=== PATIENT | female | born 1950 | race Caucasian/White ===

== ENCOUNTER 2019-04-23 11:56 | Observation (INO) | payer MEDICARE ==
[~2019-04-23] VITALS: Ht 167.6 cm; Wt 81.6 kg
--- NOTE | 2019-04-23 12:18 | NUR ---
DR. DONALDSON AND JUANJO AT BEDSIDE FOR PT EVAL AT THIS TIME.
[2019-04-23] MEDS ORDERED: SODIUM CHLORIDE 0.9% 1000ML 1,000 ML IV STA (12:26)
[2019-04-23 12:49] LABS: BASOPHILS % 0.6 % (0.0-1.0); EOSINOPHILS # (AUTO) 0.1 (0.0-0.4); EOSINOPHILS % 1.3 % (0.0-6.0); HEMATOCRIT 44.7 % (34.2-44.1); LYMPHOCYTES # (AUTO) 1.1 (1.0-3.2); LYMPHOCYTES % 17.4 % (18.0-39.1); MEAN CORPUSCULAR HEMOGLOBIN 33.3 pg (28-32); MEAN CORPUSCULAR HGB CONC 35.8 g/dL (31-35); MEAN CORPUSCULAR VOLUME 92.9 fL (81-99); MONOCYTES # (AUTO) 0.5 (0.2-0.8); MONOCYTES % 7.6 % (4.4-11.3); NEUTROPHILS # (AUTO) 4.5 (2.1-6.9); NEUTROPHILS % 72.8 % (38.7-80.0); PLATELET COUNT 157 x10e3/uL (140-360); RED BLOOD COUNT 4.81 x10e6/uL (3.6-5.1); RED CELL DISTRIBUTION WIDTH 11.8 % (11.7-14.4)
[2019-04-23 12:55] LABS: INR 0.94; PROTHROMBIN TIME 13.1 seconds (11.9-14.5)
[2019-04-23 12:56] LABS: PARTIAL THROMBOPLASTIN TIME 32.5 seconds (23.8-35.5)
--- NOTE | 2019-04-23 12:59 | Diagnostic Imaging Report ---
CT BRAIN WO HISTORY: Dizziness COMPARISON: None. TECHNIQUE: Noncontrast axial scans were obtained from skull base to the vertex. Coronal and sagittal reconstructions obtained from the axial data. One or more of the following dose reduction techniques were used: Automated exposure control, adjustment of the mA and/or kV according to patient size, and/or utilization of iterative reconstruction technique. DISCUSSION: Scalp/Skull: Unremarkable. Brain sulci: Appropriate for patient's age. Ventricles: Normal in size and configuration. No hydrocephalus. Extra-axial spaces: No masses or fluid collections. Carotid siphon and vertebral artery calcifications are present. Parenchyma: Mild periventricular white matter hypodensities are likely chronic microvascular ischemic changes. Otherwise, no mass, hemorrhage, or large vascular territory acute infarct. Dural sinuses: No abnormal densities. Sellar/Suprasellar region: Intact. Skull base: Intact. Incidental findings: None. IMPRESSION: 1. No acute intracranial abnormalities. 2. Mild supratentorial chronic microvascular ischemic change. Signed by: Dr. Yonatan Sandoval M.D. on 04/23/2019 12:55 PM
[2019-04-23] MEDS ORDERED: ONDANSETRON HCL INJ 2MG/ML 2ML 2 MG/ML VIAL IV ONE (13:00)
[2019-04-23 13:07] LABS: ALBUMIN 3.9 g/dL (3.5-5.0); ALBUMIN/GLOBULIN RATIO 1.1 (0.8-2.0); ANION GAP 14.3 mmol/L (8-16); CALCIUM 10.1 mg/dL (8.4-10.2); CREATININE, SERUM 1.04 mg/dL (0.57-1.11); POTASSIUM 4.3 mmol/L (3.5-5.1)
[2019-04-23 13:13] LABS: CREATINE KINASE MB 1.8 ng/mL (0-5.0)
--- NOTE | 2019-04-23 13:20 | Diagnostic Imaging Report ---
EXAMINATION: CHEST 2 VIEWS INDICATION: Dizziness COMPARISON: None FINDINGS: LINES/TUBES:EKG leads overlie the chest. LUNGS:Lungs are moderately inflated. No focal consolidation. There is perihilar fullness and indistinctness of the pulmonary vasculature. PLEURA:No pleural effusion or pneumothorax. MEDIASTINUM:The cardiomediastinal silhouette is mildly enlarged. Atherosclerotic calcifications of the thoracic aorta. BONES/SOFT TISSUES:No acute osseous injury. ABDOMEN:No free air under the diaphragm. IMPRESSION: Cardiomegaly and mild pulmonary edema. Signed by: Kristen Pacheco MD on 04/23/2019 1:17 PM
[2019-04-23 13:38] LABS: BILIRUBIN,URINE NEGATIVE (NEGATIVE); CLARITY,URINE SL CLOUDY (CLEAR); COLOR,URINE YELLOW (YELLOW); KETONES,URINE NEGATIVE (NEGATIVE); LEUKOCYTE ESTERASE ,URINE NEGATIVE (NEGATIVE); NITRITE,URINE NEGATIVE (NEGATIVE); PROTEIN,URINE DIPSTICK NEGATIVE (NEGATIVE); URINE UROBILINOGEN 0.2 mg/dL (0.2 - 1)
[2019-04-23] MEDS ORDERED: ONDANSETRON HCL INJ 2MG/ML 2ML 2 MG/ML VIAL IV PRN (14:00)
[2019-04-23 14:01] LABS: BACTERIA,URINE FEW /HPF; EPITHELIAL CELLS,URINE RARE /LPF; RBC,URINE 0-5 /HPF (0-5); WBC,URINE (MAN) 0-5 /HPF (0-5)
--- OUTSIDE RECORDS SUMMARY | 2019-04-23 14:05 | XMS REPORT ---
Author Author [facility] Address Unknown Phone Unavailable Care Team Providers Care Braille Teacher Name Role Phone Lilibeth DONALDSON Unavailable Unavailable Problems This patient has no known problems. Allergies, Adverse Reactions, Alerts This patient has no known allergies or adverse reactions. Medications This patient has no known medications. Results Test Description Test Time Test Comments Text Results Atomic Results Result Comments CHEST 2 VIEWS 2019-04-23 13:15:00 [place] [id number] Patient Name: RICHMOND BARRETO MR #: [id number] : 1950 Age/Sex: 68/F Req #: [id number] [facility] Physician: Ordered by: COBY DONALDSON MD Report #: [id number] Location: ER Room/Bed: Procedure: [id number] DX/CHEST 2 VIEWS Exam Date: 04/23/19 Exam Time: 1255 REPORT STATUS: Signed EXAMINATION: CHEST 2 VIEWS INDICATION: Dizziness COMPARISON: None FINDINGS: LINES/TUBES:EKG leads overlie the chest. LUNGS:Lungs are moderately inflated. No focal consolidation. There is perihilar fullness and indistinctness of the pulmonary vasculature. PLEURA:No pleural effusion or pneumothorax. MEDIASTINUM:The cardiomediastinal silhouette is mildly enlarged. Atherosclerotic calcifications of the thoracic aorta. BONES/SOFT TISSUES:No acute osseous injury. ABDOMEN:No free air under the diaphragm. IMPRESSION: Cardiomegaly and mild pulmonary edema. Signed by: Cecil Black MD on 04/23/2019 1:17 PM Dictated By: CECIL BLACK MD 16 Transcribed By: BEL on 04/23/191316 COPY TO: COBY DONALDSON MD CT BRAIN WO 2019-04-23 12:53:00 [place] [address] Patient Name: RICHMOND BARRETO MR #: [id number] : 1950 Age/Sex: 68/F Req #: [id number] Adm Physician: Ordered by: COBY DONALDSON MD Report #: [id number] Location: ER Room/Bed: Procedure: [id number] CT/CT BRAIN WO Exam Date: Exam Time: REPORT STATUS: Signed CT BRAIN WO HISTORY: Dizziness COMPARISON: None. TECHNIQUE: Noncontrast axial scans were obtained from skull base to the vertex. Coronal and sagittal reconstructions obtained from the axial data. One or more of the following dose reduction techniques were used: Automated exposure control, adjustment of the mA and/or kV according to patient size, and/or utilization of iterative reconstruction technique. DISCUSSION: Scalp/Skull: Unremarkable. Brain sulci: Appropriate for patient's age. Ventricles: Normal in size and configuration. No hydrocephalus. Extra-axial spaces: No masses or fluid collections. Carotid siphon and vertebral artery calcifications are present. Parenchyma: Mild periventricular white matter hypodensities are likely chronic microvascular ischemic changes. Otherwise, no mass, hemorrhage, or large vascular territory acute infarct. Dural sinuses: No abnormal densities. Sellar/Suprasellar region: Intact. Skull base: Intact. Incidental findings: None. IMPRESSION: 1. No acute intracranial abnormalities. 2. Mild supratentorial chronic microvascular ischemic change. Signed by: Dr. Yonatan Sandoval M.D. on 04/23/2019 12:55 PM Dictated By: YONATAN SANDOVAL MD [id number] Transcribed By: BEL on 04/23/19 125 COPY TO: COBY DONALDSON MD
--- NOTE | 2019-04-23 14:49 | NUR ---
DR. DG ASTORGA, INFORMED THAT PT IS CURRENTLY IN MRI; PER MD HE WILL ATTEMPT TO CHECK ON PT IN RADIOLOGY.
--- NOTE | 2019-04-23 15:37 | NUR ---
PT AMBULATORY TO RESTROOM AT SLOW AND STEADY PACE WITH ASSISTANCE OF IV POLE, NAD NOTED.
--- NOTE | 2019-04-23 15:47 | Diagnostic Imaging Report ---
MRI BRAIN WO HISTORY: Headache COMPARISON: Head CT 04/23/2019 TECHNIQUE: Sagittal T2, axial T2, axial T1, axial T2/FLAIR, axial gradient echo (or susceptibility weighted), coronal T2/FLAIR, and axial diffusion weighted MR images of the brain were obtained without contrast. DISCUSSION: Scalp/bone marrow: Unremarkable. Brain sulci: Appropriate for patient's age. Ventricles: Normal in size and configuration. No hydrocephalus. Extra-axial spaces: No masses or fluid collections. Parenchyma: Scattered T2/FLAIR hyperintense foci throughout the supratentorial white matter are likely chronic microvascular ischemic changes. Otherwise, no mass, hemorrhage, or acute vascular insults. Vessels: Normal flow voids in major arteries and veins. Sellar/Suprasellar region: No abnormalities. Craniocervical junction: No abnormalities. Incidental findings: None. IMPRESSION: 1. No acute intracranial abnormalities. 2. Mild supratentorial chronic microvascular ischemic change. Signed by: Dr. Yonatan Sandoval M.D. on 04/23/2019 3:44 PM
--- NOTE | 2019-04-23 15:53 | Diagnostic Imaging Report ---
MRA NECK WO, MRA HEAD WO HISTORY: Headache COMPARISON: Concurrent MRI of the brain TECHNIQUE: Axial 2D cervical, and axial 3D intracranial nmky-lj-tknwiu MRA images were obtained without contrast. Maximum intensity projection images were created. If present, any cervical carotid stenosis will be measured as a percentage relative to the [place] artery distal to the stenosis. FINDINGS: CERVICAL MRA: Right Carotid: No flow abnormalities. Left Carotid: No flow abnormalities. Right vertebral artery: No flow abnormalities. Left vertebral artery: No flow abnormalities. INTRACRANIAL MRA: Carotid arteries: No flow abnormalities in the intracranial internal carotid arteries. Normal A1 and M1 segments. Vertebrobasilar Circulation: Right vertebral artery: No flow abnormalities. Left vertebral artery: No flow abnormalities. Basilar artery: No flow abnormalities. Posterior cerebral arteries: No flow abnormalities. Normal Variants: ACom: Visualized. PComs: Not clearly visualized on the left. Persistent circulation on the right. Vertebral arteries: Co-dominant. IMPRESSION: No cervical or intracranial MRA abnormalities. Signed by: Dr. Yonatan Sandoval M.D. on 04/23/2019 3:50 PM
--- NOTE | 2019-04-23 15:53 | Diagnostic Imaging Report ---
MRA NECK WO, MRA HEAD WO HISTORY: Headache COMPARISON: Concurrent MRI of the brain TECHNIQUE: Axial 2D cervical, and axial 3D intracranial xhlv-if-ghnztf MRA images were obtained without contrast. Maximum intensity projection images were created. If present, any cervical carotid stenosis will be measured as a percentage relative to the [place] artery distal to the stenosis. FINDINGS: CERVICAL MRA: Right Carotid: No flow abnormalities. Left Carotid: No flow abnormalities. Right vertebral artery: No flow abnormalities. Left vertebral artery: No flow abnormalities. INTRACRANIAL MRA: Carotid arteries: No flow abnormalities in the intracranial internal carotid arteries. Normal A1 and M1 segments. Vertebrobasilar Circulation: Right vertebral artery: No flow abnormalities. Left vertebral artery: No flow abnormalities. Basilar artery: No flow abnormalities. Posterior cerebral arteries: No flow abnormalities. Normal Variants: ACom: Visualized. PComs: Not clearly visualized on the left. Persistent circulation on the right. Vertebral arteries: Co-dominant. IMPRESSION: No cervical or intracranial MRA abnormalities. Signed by: Dr. Yonatan Sandoval M.D. on 04/23/2019 3:50 PM
[2019-04-23] MEDS: SODIUM CHLORIDE 0.9% 1000ML 1,000 ML IV SCH (16:12)
--- NOTE | 2019-04-23 16:16 | NUR ---
BELLO WORLEY ROUNDING AT BEDSIDE FOR PT ASSESSMENT AT THIS TIME.
[2019-04-23] MEDS ORDERED: ACETAMINOPHEN 325 MG TAB PO PRN (16:45)
--- NOTE | 2019-04-23 19:10 | NUR ---
REPOORT GIVEN TO IRAM MCNAMARA.
--- NOTE | 2019-04-23 19:15 | NUR ---
PT GIVEN TURKEY SANDWICH AND DIET LEMON-AMBLER SODA, TOLERATING WELL.
[2019-04-23] MEDS ORDERED: LOSARTAN-HCTZ1 EACH PO (19:59)
[2019-04-23] MEDS ORDERED: LEVOTHYROXINE100 MCG PO (19:59)
[2019-04-23] MEDS ORDERED: SIMVASTATIN20 MG PO (19:59)
[2019-04-23] MEDS ORDERED: ATENOLOL50 MG PO (19:59)
[2019-04-23 20:08] LABS: CREATINE KINASE MB 1.8 ng/mL (0-5.0)
--- NOTE | 2019-04-23 20:40 | NUR ---
RECEIVED PT TO UNIT ROOM 111 VIA STRETCHER.PT AMBULATED FROM STRETCHER TO BED WITH STAND BY ASSISTANCE.PT AAO X 3.RESPIRATIONS EVEN/NON LABORED.DENIES ANY PAIN CURRENTLY.ORIENTED PT TO ROOM,BATHROOM,CALL LIGHT/TV REMOTE.INSTRUCTED PT TO CALL FOR ASSISTANCE NEEDED BY PRESSING CALL LIGHT.PT VERBALIZED UNDERSTANDING.CALL LIGHT WITHIN EASY REACH.
[2019-04-23 21:11] VITALS: BP 164/70
--- NOTE | 2019-04-23 21:15 | NUR ---
CONSULT TO DR PIEDAD GUERRA.
[2019-04-23 22:27] VITALS: BP 164/70
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
[2019-04-24] VITALS (7 sets, daily range): BP systolic 103–133; BP diastolic 49–62
[2019-04-24] MEDS: LEVOTHYROXINE SODIUM 50 MCG TAB PO SCH (05:50)
[2019-04-24 06:01] LABS: BASOPHILS % 0.8 % (0.0-1.0); EOSINOPHILS # (AUTO) 0.1 (0.0-0.4); EOSINOPHILS % 2.5 % (0.0-6.0); HEMATOCRIT 40.8 % (34.2-44.1); HEMOGLOBIN 14.5 g/dL (12.0-16.0); LYMPHOCYTES # (AUTO) 1.4 (1.0-3.2); LYMPHOCYTES % 27.1 % (18.0-39.1); MEAN CORPUSCULAR HEMOGLOBIN 33.3 pg (28-32); MEAN CORPUSCULAR HGB CONC 35.5 g/dL (31-35); MEAN CORPUSCULAR VOLUME 93.6 fL (81-99); MONOCYTES # (AUTO) 0.6 (0.2-0.8); MONOCYTES % 11.5 % (4.4-11.3); NEUTROPHILS % 57.9 % (38.7-80.0); PLATELET COUNT 145 x10e3/uL (140-360); RED BLOOD COUNT 4.36 x10e6/uL (3.6-5.1); RED CELL DISTRIBUTION WIDTH 11.9 % (11.7-14.4)
[2019-04-24 06:41] LABS: CREATINE KINASE MB 1.7 ng/mL (0-5.0)
[2019-04-24 07:01] LABS: ALBUMIN 3.3 g/dL (3.5-5.0); ALBUMIN/GLOBULIN RATIO 1.2 (0.8-2.0); ANION GAP 11.2 mmol/L (8-16); CALCIUM 9.5 mg/dL (8.4-10.2); CHOL/HDL RATIO 4.1 (3.0-3.6); CREATININE, SERUM 1.02 mg/dL (0.57-1.11); POTASSIUM 4.2 mmol/L (3.5-5.1)
--- NOTE | 2019-04-24 07:23 | NUR ---
REPORT GIVEN TO ONCOMING NURSE.WALKING ROUNDS MADE.PT RESTING IN BED WITH NO S/S OF DISTRESS.
--- NOTE | 2019-04-24 07:48 | NUR ---
Patient a/ox3, pleasant and no distress at this time, rounds completed,denies chest pains, denies dizziness, call light within reach, bed in low locked position, will monitor.
[2019-04-24] MEDS ORDERED: ATENOLOL 50 MG TAB PO SCH (09:00)
[2019-04-24] MEDS: SODIUM CHLORIDE 0.9% 1000ML 1,000 ML IV SCH ×2 (10:00)
[2019-04-24] MEDS ORDERED: ENOXAPARIN INJ 80 MG/0.8 ML SYR SC ONE (13:00)
--- NOTE | 2019-04-24 14:30 | NUR ---
Call from radiology stating diagnosis for CTA chest doesn't qualify for test and want diagnosis that will qualify. Call to Dr. Vargas at this time
--- NOTE | 2019-04-24 16:35 | NUR ---
Orders per Dr. Vargas for CTA PE protocol, patient allergic to Iodine and will follow protocol for iodine allergy. Orders in place and specific times, spoke with patient care technician and they confirmed can do the test at anytime. Scheduled first dose of Prednisone for 6pm today. Zantac not used in the facility per pharmacist and Famotidine replaced on the protocol.
--- NOTE | 2019-04-24 17:16 | NUR ---
Nutrition Screen Note RD Recommendation for Physician: Continue diet as ordered Plan of Care: RD following, monitoring for tolerance and adequacy Nutrition reason for involvement: Nutrition Risk Trigger MST 2 Primary Diagnose(s): dizziness, near syncope, weakness PMH: HTN, high cholesterol, vertigo, thyroid disorder Ht: 66 in Wt:180 lb BMI: 29.04 kg/m2 IBW: 130 lb +/- 10% RD Assessment: 04/24 - Chart reviewed. Labs and meds reviewed. 68 year old female, who was admitted for near syncope. Pt stated she has been eating <50% of meals today and vomited yesterday. However, consumption of 75% of meals for breakfast and lunch were recorded today. Pt with good appetite EMERGENCY SERVICES PROFESSIONAL. No wt loss reported and pt stated she usually weighs 182 lbs. Pt currently has a measured wt of 180 lbs in chart. No chewing/swallowing issues reported. Will continue to monitor and follow. Current Diet: cardiac diet Malnutrition Evaluation (04/24/2019) The patient does not meet criteria for a specified degree of malnutrition at this time. Will re-evaluate at follow-up as appropriate. Energy intake: Adequate PO intake reported Weight loss: No weight loss reported Fat loss: no loss identified Muscle loss: no loss identified Supporting Evidence: Fluid accumulation: no accumulation identified Functional Status: unable to evaluate Diet Education Needs Assessment: Diet education not indicated. Pt was not interested in nutrition education at this time. Nutrition Care Level: low Signed: Kaitlin Reagan, MS, RD, LD
[2019-04-24] MEDS ORDERED: PREDNISONE 20 MG TAB PO SCH (18:00)
--- NOTE | 2019-04-24 22:48 | Consultation ---
DATE OF CONSULTATION: 04/24/2019 Cardiology Consultation CONSULTING PHYSICIAN: Henry Regan MD, Interventional Cardiology. REASON FOR CONSULTATION: Lightheadedness. HISTORY OF PRESENT ILLNESS: Ms. Locke is a 68-year-old woman with a history of remote NH associated to complications with with stillbirth several decades ago, and at that time, was told she had an NH resulting from her complication, however, no coronary interventions were indicated or advised at that time. She reports no other cardiac history, presents with complaints of episodes of lightheadedness/dizziness and sensation of near-fainting occurring intermittently and recurrently. It has happened in the middle of the evening waking her from sleep as well as while sitting down, episodes occurring without relation to exertion and at rest, sometimes in recumbent position. She reports no other complaints. She denies any chest pain. Denies any shortness of breath. She denies any full loss of consciousness either. Associated symptoms include nausea and vomiting. REVIEW OF SYSTEMS: A 12-system review is negative, except for as noted above. ALLERGIES: OSELTAMIVIR, FENOFIBRATE, CODEINE, IODINE, AND STATINS. PAST MEDICAL HISTORY: As described above. SOCIAL HISTORY: As described above. FAMILY HISTORY: As described above. PHYSICAL EXAMINATION: VITAL SIGNS: Temperature 96.5, heart rate 54, respiratory rate 18, blood pressure 103/51. BMI is 29. GENERAL: In no acute distress, alert. NECK: No JVD. CHEST: Clear to auscultation. CARDIOVASCULAR: Regular rate and rhythm. Normal S1 and S2. No S3. No S4. ABDOMEN: Soft, nontender, nondistended. Bowel sounds positive. EXTREMITIES: No cyanosis, clubbing, or edema. CARDIOVASCULAR MEDICATIONS: Reviewed. Atenolol 50 mg daily, levothyroxine 50 mcg daily. STUDIES: Reviewed. On telemetry, in sinus rhythm. Sodium 137, potassium 4.2, chloride 104, bicarbonate 26, BUN 15, creatinine 1.02, glucose 89. White blood cells 5.2, hemoglobin 14.5, platelets 145. INR 0.9. AST 19, ALT 15, alk phos 43, total bilirubin 0.9. ASSESSMENT: A 68-year-old woman presents with presyncope and associated nausea, vomiting. Differential diagnosis includes vertigo. Potential etiologies include arrhythmogenic syncope, pulmonary embolism, orthostatic hypotension, and less likely neurogenic. RECOMMENDATIONS: The patient had an echocardiogram done at an outside facility. report reviewed. Preserved left ventricular systolic function with LVH and left atrial enlargement. EKG shows sinus consistent with LVH. However, the patient's blood pressure is currently well controlled. Please keep on telemetry monitoring. Obtain CTA chest, PE protocol. If negative and no recurrent symptoms and no arrhythmias observed, we advised her to continue with evaluation for arrhythmias, which can be arranged as outpatient with her treating outpatient milk bottler. Outpatient stress test can also be considered. MD CoxV/MODL /[id number]
[2019-04-25] VITALS: BP 138/63
[2019-04-25] MEDS: SODIUM CHLORIDE 0.9% 1000ML 1,000 ML IV SCH ×2 (02:05→06:00)
[2019-04-25 04:00] VITALS: BP 113/55
[2019-04-25] MEDS ORDERED: PREDNISONE 20 MG TAB PO SCH (04:00)
[2019-04-25] MEDS ORDERED: DIPHENHYDRAMINE HCL 25 MG CAP PO SCH (05:00)
[2019-04-25] MEDS ORDERED: FAMOTIDINE 20 MG TAB PO SCH (05:00)
--- NOTE | 2019-04-25 05:00 | NUR ---
MEDICATIONS FOR IODINE ALLERGY PROPHYLAXIS GIVEN PER DR. HERBERT ORDER.
--- NOTE | 2019-04-25 06:15 | NUR ---
PATIENT OFF UNIT TO CT VIA WHEELCHAIR. CONDITION STABLE.
--- NOTE | 2019-04-25 06:40 | NUR ---
PATIENT BACK TO ROOM. NO S/S OF DISTRESS NOTED. NO COMPLAINTS VOICED.
[2019-04-25] MEDS: LEVOTHYROXINE SODIUM 50 MCG TAB PO SCH (06:43)
[2019-04-25] MEDS ORDERED: IOPAMIDOL 370 MG/ML 200 ML INFUS..BTL INJ ONE (06:49)
[2019-04-25] MEDS ORDERED: SODIUM CHLORIDE 0.9% 50ML 50 ML ONE (06:49)
--- NOTE | 2019-04-25 07:04 | Diagnostic Imaging Report ---
EXAM: CT Chest WITH contrast (PE Protocol) INDICATION: ^PE protocol... pre-medicated iodine allergy ^[id number] ^[id number] COMPARISON: None TECHNIQUE: Chest was scanned utilizing a multidetector helical scanner from the lung apex through the level of the diaphragm after administration of IV contrast. Thin section reconstructions were obtained with special concentration on the pulmonary arteries. Coronal and sagittal reformations were obtained. Dose modulation, iterative reconstruction, and/or weight based adjustment of the mA/kV was utilized to reduce the radiation dose to as low as reasonably achievable. Pulmonary embolism protocol was performed. IV CONTRAST: 100 mL of Isovue-370 COMPLICATIONS: None RADIATION DOSE: Total DLP: 505.45 mGy*cm Estimated effective dose: (DLP x 0.014 x size factor) mSv CTDIvol has been reviewed. It is below the limits set by the Radiation Protocol Committee (RPC). FINDINGS: LINES/ TUBES: None. LUNGS AND AIRWAYS: No filling defect is identified within the pulmonary arteries to the segmental level. Mild dependent atelectasis. Nonspecific 3 mm left upper lobe lung nodule. Airways are normal. PLEURA: The pleural spaces are clear. HEART AND MEDIASTINUM: The thyroid gland is normal. No mediastinal, hilar or axillary lymphadenopathy. The heart is normal in size.. There is no pericardial effusion. . Main pulmonary artery measures 2.9 cm in diameter and the ascending aorta measures 3.2 cm. Atherosclerotic calcification of aorta and coronary arteries UPPER ABDOMEN: Unremarkable BONES: Degenerative changes of thoracic spine with exaggerated kyphosis. SOFT TISSUES: Unremarkable. IMPRESSION: No pulmonary emboli. Signed by: Dr. Federico Dorman MD on 04/25/2019 7:00 AM
--- NOTE | 2019-04-25 07:42 | NUR ---
Received patient, a/ox3, no distress, call light within reach, will monitor.
[2019-04-25 08:38] VITALS: BP 139/63
[2019-04-25 11:55] VITALS: BP 139/63
[2019-04-25 12:00] VITALS: BP 125/59
--- NOTE | 2019-04-25 13:15 | NUR ---
Patient cleared for discharge by Test Borer, patient discharged by attending, continue home meds, f/u with PCP and Test Borer with [facility] system. IV line removed and cath tip in place, dressing applied. Provided with discharge instructions.
--- NOTE | 2019-04-26 05:04 | Discharge Summary ---
PRIMARY CARE DOCTOR: Dr. Sherrie Marc. FINAL DIAGNOSIS: Dizziness. SECONDARY DIAGNOSES: 1. Hypertension. 2. Hypothyroidism. PIN PUSHER: Dr. Vargas, Cardiology. PROCEDURE/STUDIES PERFORMED: 1. MRI of the brain. 2. Head CT. 3. CTA of the chest, they were all negative. HISTORY: Per H and P. HOSPITAL COURSE: The patient presented with more frequent and more severe attacks of vomiting, diaphoresis, and dizziness, this is latest episode, possibly she had syncope. Telemetry monitoring is negative, here for 36 hours. The patient was evaluated by Cardiology. CT of the chest was negative for PE as well. The patient will be discharged home since she is back to her baseline. I have updated her primary care doctor. Potentially, the patient need an outpatient loop recorder and an outpatient stress test. The patient does have followup appointment with her [facility] allergist immunologist. The patient was seen and examined today. CONDITION ON DISCHARGE: Improved. DISCHARGE MEDICATIONS: Please see medication reconciliation form. MD TERESA Munoz/JAYA /[id number] cc: [facility]
== END 2019-04-25 13:14 | disposition home or self-care (01) ==
LOC: ER 12:00 → ERHOLD 13:59 → MED/SURG 20:45
PROVIDERS: ADMIT Internal Medicine; ATTEND Internal Medicine
DX: R42 Dizziness and giddiness (principal); E03.9 Hypothyroidism, unspecified; I25.2 Old myocardial infarction; I51.7 Cardiomegaly
CPT/HCPCS: 36415 ×2; 70450; 70544; 70547; 70551; 71046; 71260; 80053 ×2; 80061; 81001; 82550 ×2; 82553 ×2; 83036; 83735; 83880; 84484 ×2; 85025 ×2; 85610; 85730; 87086; 93005; 96374; 99284; G0378 ×3; J1650; J2405; J7030 ×3; J7512 ×2; Q9967